=== PATIENT | female | born 1990 | race African-American/Black ===

== ENCOUNTER 2023-04-15 16:50 | Emergency (ER) | payer OTHER ==
--- NOTE | 2023-04-15 17:02 | ED Physician Documentation ---
PD HPI URI - Stated complaint Stated Complaint: SINUS CONGESTION - Chief complaint Chief Complaint: Heent - History obtained from History obtained from: Patient - History of Present Illness Timing - onset: How many weeks ago (2) Timing duration: Weeks (2) Timing details: Gradual onset, Still present, Waxing and waning (had general URI symptoms for about 1 1/2 weeks and was improving mostly but now with few days of notable sinus pressure and purulent dischare. Difficultly breathing left nostril in paritcular.) Associated symptoms: Fever (just the past 2 days.), Nasal congestion, Sinus pain. No: Chills, Sore throat Contributing factors: No: Sick contact Similar symptoms before: Has not had sx before Review of Systems Constitutional: reports: Fever Nose: reports: Rhinorrhea / runny nose, Congestion, Sinus pressure / pain Throat: denies: Sore throat Respiratory: denies: Cough GI: denies: Vomiting, Diarrhea Skin: denies: Rash PD PAST MEDICAL HISTORY - Past Medical History Respiratory: None Neuro: None - Present Medications Home Medications: Ambulatory Orders Medication Instructions Recorded Confirmed Amox/Clav 875/125 [Augmentin] 1 each PO Q12H #10 tablet 04/15/23 Fluticasone [Flonase] 1 sprays SHANDA BID PRN 10 Days #16 gm 04/15/23 dexAMETHasone [Decadron] 4 mg PO DAILY #5 tablet 04/15/23 - Allergies Allergies/Adverse Reactions: Allergies Allergy/AdvReac Type Severity Reaction Status Date / Time No Known Drug Allergies Allergy Verified 04/15/23 16:57 PD ED PE NORMAL - Vitals Vital signs reviewed: Yes - General General: Alert and oriented X 3, No acute distress (is having congestion and seems uncomfortable trying to breath through nostrils. Moslty open mouth breathing. ), Well developed/nourished - HEENT HEENT: Ears normal, Pharynx benign, Other (nasal passages with anterior mucosal swelling and watery, with some purulent materail. Left nasal passage has higher up rounded pink soft tissue mass mostly occluding the passage c/w mucosal polyp. ) - Neck Neck: Supple, no meningeal sign, No adenopathy Results - Vitals Vitals: Oxygen O2 Source Room air PD Medical Decision Making - ED course Complexity details: considered differential (inital URI symptoms for 7-10 days and now with 2-3 days of just increasing sinus symptoms and purulent drainage. Has mucosal polyp left side as well.), d/w patient ED course: Sounds like URI with now focal sinusitis. Has left nasal passage polyp blocking the passage, likely leading to some of the sinus drainage problems. Will have her use abx, flonase, and follow up with ENT. Departure - Departure Disposition: 01 Home, Self Care Clinical Impression: Acute bacterial sinusitis, Nasal polyp Condition: Stable Record reviewed to determine appropriate education?: Yes Instructions: ED Sinusitis Abx Tx Follow-Up: SHANDA Jono Claire [Provider Group] Prescriptions: Amox/Clav 875/125 [Augmentin] 1 each PO Q12H #10 tablet dexAMETHasone [Decadron] 4 mg PO DAILY #5 tablet Fluticasone [Flonase] 1 sprays SHANDA BID PRN 10 Days #16 gm PRN Reason: Nasal Congestion Comments: It sounds likely you have developed a bacterial sinus infection now. We can treat with antibiotics and anti-inflammatories. I would also suggest increasing your cetirizine to twice daily for the next 10 days or so. On your left nasal passage, there is a rounded area of inflammation (nasal polyp). We would try to improve on this with anti-inflammatories and we can give oral medication as well as I would suggest trying fluticasone/Flonase 1 spray twice daily on the left nostril in particular for the next 7 to 10 days. Commonly inflammation of this will go down as the infection/inflammation improves. You would want to recheck with your primary care or provider in a week to 10 days to recheck it and see if it is improved. If there is persistent inflammation or blocking the nasal passage, it may make it easier to get recurrent infections. They may want to refer you to a ENT specialist if it persists. If it improves and no particular treatment. I sent your prescriptions to [facility] pharmacy. Discharge Date/Time: 04/15/23 17:49
[2023-04-15] MEDS ORDERED: AMOX/CLAV 875 MG/125 MG TABLET PO STA (17:18)
[2023-04-15] MEDS ORDERED: CHERRY SYRUP 10 ML UDC PO ONE (17:18)
[2023-04-15] MEDS ORDERED: DEXAMETHASONE 10 MG/ML VIAL PO STA (17:18)
[2023-04-15 17:50] VITALS: BP 122/76
== END 2023-04-15 17:49 | disposition home or self-care (01) ==
LOC: ED 16:50
DX: J01.90 Acute sinusitis, unspecified (principal); B96.89 Other specified bacterial agents as the cause of diseases classified elsewhere; J33.9 Nasal polyp, unspecified
CPT/HCPCS: 99282; 99283; A9270

== ENCOUNTER 2023-09-10 20:37 | Outpatient (CLI) | payer OTHER | END 2023-09-10 20:38 | disposition home or self-care (01) | LOC: SC 20:37 | PROVIDERS: ATTEND Nurse Practitioner Family | DX: G47.33 Obstructive sleep apnea (adult) (pediatric) (principal) | CPT/HCPCS: 95810 ==

== ENCOUNTER 2023-11-02 10:57 | Outpatient (CLI) | payer OTHER ==
--- NOTE | 2023-11-02 10:56 | SLEEP CARE CONSULTATION ---
Information from patient questionnaire entered by Carly Harrell. I have reviewed and concur with the information entered by Carly Harrell. This document represents the service I personally performed and the decisions made by , Shira Oglesby ARNP. History of Present Illness Service Date and Time: 11/02/2023 1040 Initial [place] Sleepiness Scale score: 15 (08/15/23) Current [place] Sleepiness Scale score: 17 (11/02/23) Additional HPI information: SEN LYLE returns via video appointment for follow up and results of the recently performed home sleep study. The patient was informed of the following findings: No significant sleep disordered breathing with an average AHI of 1.5 and stephan oxygen saturation of 87%. I explained the pathophysiology behind obstructive sleep apnea. Patient does not have sleep apnea and was advised how weight gain could increase the risk of developing sleep apnea in the future. I strongly encouraged the patient to lose weight. Patient has light snoring. Snoring can be reduced by weight loss. Weight loss is best achieved with diet consult. Patient instructed to contact PCP for referral. Snoring can also be treated with an oral appliance from a dentist. Advised to check insurance coverage. In addition, an ENT evaluation can be do to see if other treatment is indicated. Patient counseled not drink alcohol less than 4 hours before bedtime as it can increase snoring and apnea. Patient was cautioned about risks of drowsy driving until sleepiness symptoms resolve. Patient denies drowsy driving. Sleep Study - Results Type of Sleep Study: Home sleep study (COMPLETED 09/10/23) Prior sleep studies: Yes Polysomnography/Home Sleep Study results: IMPRESSION: The quality of the study is good. The patient had normal sleep efficiency. The sleep architecture was relatively normal as well considering the first night effect. Respiratory monitoring showed no significant sleep disordered breathing (AHI = 1.5) or hypoxia (stephan oxygen saturation of 87% and only < 1% to the total sleep time was spent with oxygen saturation below 90%). The patient slept mostly supine (supine AHI = 2.1; non-supine = 0.00). Snore was infrequent and light in intensity. There was no significant periodic leg movement of sleep. Cardiac rhythm was normal sinus rhythm without significant arrhythmia. No abnormal behavior (parasomnia) observed during the night. Allergies and Home Medications Known drug allergies: No Drug allergies reviewed: Yes Home medication list reviewed: Yes (no changes) Allergy and home medication list: Allergies No Known Drug Allergies Allergy (Verified 11/01/23 09:46) Review of Systems Review of systems same as previous: No ([place] [facility]) Physical Exam Vital signs obtained and entered by: CARLY Huang MA Height: 5 ft 10 in (PER PT) Weight: 220 lb (PER PT) Body Mass Index: 31.5 BMI Classification: Obese Impression and Plan 1. Snoring but no significant sleep disordered breathing. Patient has a CPAP that she has not used for over a year. She received just a couple of years ago so it does belong to her. I advised her that she does not need to use the CPAP since her sleep study shows no significant sleep apnea at this time. Patient advised that often weight loss will reduce snoring as well as apnea risk. An oral appliance can also be used for snoring. This would require a dental consultation. Patient cautioned not to use other online appliances as can cause bite issues. Patient is advised to check if insurance will cover. An ENT consult can also be helpful to determine if any other treatment is an option. 2. Obesity, unspecified. Currently patients BMI is 31.5. Obesity increases the risk of apnea, CPAP pressure requirements and overall health risks especially cardiovascular and diabetes. Thus patient is advised to lose weight. * Stop CPAP therapy * Attempt to lose weight * Avoid alcohol consumption near bedtime * The patient is cautioned about driving until sleepiness is completely resolved. * Return as needed for follow up. Counseling Topics: Weight loss health impact Follow up with Sleep Care in: as needed Visit Type: Telehealth Video Video Type: [facility] Patient Location: Home Location of Provider: Office Patient agrees and consents to this telehealth visit type: Yes Patient agrees to have their insurance billed: Yes Time Spent with Patient (minutes): 10 Provider Statement: I spent 100% of the Telehealth Video Call with the patient with greater than 50% spent counseling the patient and coordination of care.
== END 2023-11-02 10:58 | disposition home or self-care (01) ==
LOC: SC 10:57
PROVIDERS: ATTEND Nurse Practitioner Family
DX: R06.83 Snoring (principal); E66.9 Obesity, unspecified; Z68.31 Body mass index [BMI] 31.0-31.9, adult